=== PATIENT | female | born 1940 | race Caucasian/White ===

== ENCOUNTER 2016-06-17 09:41 | Emergency (ER) | payer MEDICARE ==
[~2016-06-17] VITALS: Ht 165.1 cm; Wt 81.8 kg
[2016-06-17 09:46] VITALS: Ht 165.1 cm; Wt 81.8 kg
[2016-06-17] MEDS ORDERED: IPRATROPIUM (NEB) 0.5 MG/2.5 ML AMP NEB STA (10:03)
[2016-06-17] MEDS ORDERED: ALBUTEROL 0.5% (NEB) 2.5 MG/0.5 ML AMP NEB STA (10:03)
[2016-06-17] MEDS ORDERED: METHYLPREDNISOLONE 125 MG INJ IV STA (10:03)
--- NOTE | 2016-06-17 10:23 | RADRPT ---
PROCEDURE: XR Chest. CLINICAL INDICATION: Abdomen pain. TECHNIQUE: Single frontal view. COMPARISON: None. FINDINGS: The lungs are clear. The heart size is normal. There is calcification in the aorta consistent with atherosclerosis. Thompson gical clips are present in the left axillary region. There is no pleural effusion. There is no pneumothorax. IMPRESSION: 1. Atherosclerosis. 2. Clear lungs. 3. Prior left axillary region surgery. RPTAT: QQ .Kevin Santiago MD, MD Date Time Electronically viewed and signed by .Kevin Santiago MD, MD on 06/17/2016 10:22 .R/
[2016-06-17 10:58] LABS: BASOPHILS % 0.4 % (0.0-2.0); EOSINOPHILS # 0.4 10^3/ul (0.0-0.5); EOSINOPHILS % 6.5 % (0.0-7.0); HEMATOCRIT 38.5 % (37.0-47.0); HEMOGLOBIN 12.6 g/dl (12.0-16.0); LYMPHOCYTES # 2.8 10^3/ul (0.8-2.9); LYMPHOCYTES % 45.4 % (15.0-51.0); MEAN CORPUSCULAR HEMOGLOBIN 27.9 pg (29.0-33.0); MEAN CORPUSCULAR HGB CONC 32.8 g/dl (32.0-37.0); MEAN CORPUSCULAR VOLUME 85.2 fl (82.0-101.0); MEAN PLATELET VOLUME 9.9 fl (7.4-10.4); MONOCYTE # 0.6 10^3/ul (0.3-0.9); MONOCYTES % 10.3 % (0.0-11.0); NEUTROPHIL # 2.3 10^3/ul (1.6-7.5); NEUTROPHILS % 37.4 % (39.0-77.0); PLATELET COUNT 154 10^3/UL (140-440); RED BLOOD COUNT 4.52 10^6/ul (4.20-5.40); RED CELL DISTRIBUTION WIDTH 20.2 % (11.5-14.5); UNCORRECTED WBC 6.2 10^3/ul (4.8-10.8); WHITE BLOOD COUNT 6.2 10^3/ul (4.8-10.8)
[2016-06-17 10:59] LABS: POTASSIUM 3.7 mmol/L (3.5-5.1)
[2016-06-17 11:01] LABS: ALBUMIN/GLOBULIN RATIO 0.93; BILIRUBIN,INDIRECT 0.2 mg/dl (0-1.1); BILIRUBIN,TOTAL 0.2 mg/dl (0.2-1.3); CREATININE 0.7 mg/dl (0.44-1.00); TOTAL PROTEIN 6.2 g/dl (6.1-8.1)
[2016-06-17 11:02] LABS: CALCIUM 8.3 mg/dl (8.4-10.2)
[2016-06-17 11:07] LABS: CONDITION 1; LH ANALYZER COMMENTS 1
[2016-06-17 12:06] VITALS: TEMP 97.7
--- NOTE | 2016-06-17 12:24 | RADRPT ---
PROCEDURE: CT brain without contrast CLINICAL INDICATION: Altered level of consciousness TECHNIQUE: CT of the brain without contrast performed on a multidetector CT scanner, with multiplan ar reformats. One or more of the following dose reduction techniques were used: Automated exposure control, adjustment in mA and / or kV according to patient size, use of iterative reconstructive mary hnique. CTDIvol = 45 mGy; DLP = 630 mGy-cm. COMPARISON: None available FINDINGS: No acute intracranial hemorrhage is identified. No extra-axial fluid collection is seen. There is no mass effect. No midline shift is identified. Ventricles and sulci are mild to moderately enlarged compatible with volume loss. There are mild to moderate areas of hypodensity in the periventricular - deep white matter which are nonspecific but suggestive of chronic small vessel ischemic changes. Knox-white differentiation is preserved. Osseous structures are unremarkable. Bilateral ethmoid air cell mucosal thickening and small left s phenoid sinus air fluid level are seen. IMPRESSION: 1. No evidence of acute intracranial pathology. 2. Mild to moderate volume loss, with mild to moderate chronic small vessel ischemic changes. RPTAT: VV .Rc Falcon MD, MD Date Time Electronically viewed and signed by .Rc Falcon MD, MD on 06/17/2016 12:24 .O/
[2016-06-17] MEDS ORDERED: LORAZEPAM 2 MG INJ IV ONE (13:00)
[2016-06-17 13:35] LABS: ADD UMIC YES; URINE BILIRUBIN (Dip) NEGATIVE (NEGATIVE); URINE BLOOD (Dip) 1+ (NEGATIVE); URINE COLOR LT. YELLOW (YELLOW); URINE GLUCOSE (Dip) NEGATIVE (NEGATIVE); URINE KETONES (Dip) NEGATIVE (NEGATIVE); URINE LEUKOCYTE ESTERASE (Dip) 2+ (NEGATIVE); URINE NITRITE (Dip) NEGATIVE (NEGATIVE); URINE TOTAL PROTEIN (Dip) TRACE (NEGATIVE); URINE UROBILINOGEN (Dip) 0.2 E.U./dL (0.1-1.0)
--- NOTE | 2016-06-17 13:49 | ERD ---
ER Documentation Chief Complaint Date/Time DATE: 06/17/16 TIME: 13:[address] and carotid duplex r/o CVA HPI This is a 76-year-old female who presents to the emergency room from her longterm for evaluation of a headache, and altered mental status. According to EMS in longterm notes this patient is normally alert oriented to person only. Today there was a concern for possible headache and they called the patient's primary care physician, Dr. mtz who sent this patient for evaluation and a CAT scan of the head. This patient is unable to give a history secondary to dementia. ROS All systems reviewed and are negative except as per history of present illness. Medications Home Meds Unable to Obtain Active Prescriptions or Reported Meds Allergies Allergies: Coded Allergies: Unknown: Unable to obtain (Unverified , 06/17/16) PMhx/Soc Hx Neurological Disorder: Yes (dementia ) Hx Alcohol Use: No Hx Substance Use: No Hx Tobacco Use: No Smoking Status: Unknown if ever smoked Physical Exam Vitals Vital Signs Date Time Temp Pulse Resp B/P Pulse Ox O2 Delivery O2 Flow Rate FiO2 06/17/16 12:06 97.7 06/17/16 10:23 72 20 93 21 06/17/16 09:46 97.8 72 20 106/53 93 Physical Exam Const: No acute distress Head: Atraumatic Eyes: Normal Conjunctiva ENT: Normal External Ears, Nose and Mouth. Neck: Full range of motion..~ No meningismus. Resp: Clear to auscultation bilaterally Cardio: Regular rate and rhythm, no murmurs Abd: Soft, non tender, non distended. Normal bowel sounds Skin: No petechiae or rashes Back: No midline or flank tenderness Ext: No cyanosis, or edema Neur: Awake and alert Psych: Normal Mood and Affect Result Diagram: 06/17/16 1030 06/17/16 1030 Results 24 hrs Laboratory Tests Test 06/17/16 10:30 06/17/16 11:59 06/17/16 13:15 Alanine Aminotransferase (ALT/SGPT) 32IU/L Albumin 3.0g/dl Albumin/Globulin Ratio 0.93 Alkaline Phosphatase 62IU/L Anion Gap 15 Aspartate Amino Transf (AST/SGOT) 36IU/L Basophils # 0.010^3/ul Basophils % 0.4% Blood Morphology Comment Blood Urea Nitrogen 13mg/dl Calcium Level 8.3mg/dl Carbon Dioxide Level 26mmol/L Chloride Level 104mmol/L Creatinine 0.70mg/dl Direct Bilirubin 0.00mg/dl Eosinophils # 0.410^3/ul Eosinophils % 6.5% Globulin 3.20g/dl Glucose Level 145mg/dl Hematocrit 38.5% Hemoglobin 12.6g/dl Indirect Bilirubin 0.2mg/dl Lipase 29U/L Lymphocytes # 2.810^3/ul Lymphocytes % 45.4% Mean Corpuscular Hemoglobin 27.9pg Mean Corpuscular Hemoglobin Concent 32.8g/dl Mean Corpuscular Volume 85.2fl Mean Platelet Volume 9.9fl Monocytes # 0.610^3/ul Monocytes % 10.3% Neutrophils # 2.310^3/ul Neutrophils % 37.4% Nucleated Red Blood Cells # 0.010^3/ul Nucleated Red Blood Cells % 0.0/100WBC Platelet Count 67710^3/UL Potassium Level 3.7mmol/L Red Blood Count 4.5210^6/ul Red Cell Distribution Width 20.2% Sodium Level 141mmol/L Total Bilirubin 0.2mg/dl Total Protein 6.2g/dl White Blood Count 6.210^3/ul Bedside Glucose 112mg/dL Urine Bilirubin NEGATIVE Urine Clarity CLEAR Urine Color LT. YELLOW Urine Glucose NEGATIVE% Urine Hemoglobin 1+ Urine Ketones NEGATIVE Urine Leukocyte Esterase 2+ Urine Microscopic RBC Pending Urine Microscopic WBC Pending Urine Nitrite NEGATIVE Urine Specific [place] 1.025 Urine Total Protein TRACE Urine Urobilinogen 0.2 E.U./dL Urine pH 6.0 Current Medications Medications (Trade) Dose Ordered Sig/Mari Route PRN Reason Start Time Stop Time Status Last Admin Dose Admin Albuterol (Proventil 0.5% (Neb)) 5 mg ONCE STAT NEB 06/17/16 10:03 06/17/16 10:05 DC 06/17/16 10:21 Ipratropium [place] (Atrovent 0.02% (Neb)) 0.5 mg ONCE STAT NEB 06/17/16 10:03 06/17/16 10:05 DC 06/17/16 10:21 Methylprednisolone Sodium Succinate (Solu-Medrol) 125 mg ONCE STAT IV 06/17/16 10:03 06/17/16 10:05 DC 06/17/16 10:38 Lorazepam (Ativan) 1 mg ONCE ONCE IV 06/17/16 13:00 06/17/16 13:01 DC 06/17/16 12:50 Procedures/MDM CT head without: 1. No evidence of acute intracranial pathology. 2. Mild to moderate volume loss, with mild to moderate chronic small vessel ischemic changes. Chest X-ray 1V Interpreted by me: Soft Tissue: No acute abnormalities Bones: No acute abnormalities Mediastinum/Cardiac Silhouette/Lungs: [No acute abnormalities] This is a 68-year-old female presents to emergency room for possible weakness and a headache. This patient had a CAT scan of the head which is normal. Lab work is within normal limits except for urinalysis. I did call the patient's primary care physician and states that if this patient's lab work is normal but can be returned to the longterm. The patient was given 1 g Rocephin here in the emergency room, urine culture was obtained. Patient will be discharged back to her longterm with a prescription for Macrobid for acute cystitis. There is no signs of systemic infection, no fever, no leukocytosis. This patient is hemodynamically stable at this time Departure Diagnosis: Primary Impression: Acute cystitis Additional Impression: Headache Condition: Stable RJ ANGULO DO Jun 17, 2016 13:49
[2016-06-17] MEDS ORDERED: NITR-58 PO (13:50)
[2016-06-17] MEDS ORDERED: CEFTRIAXONE 1 GM/50 ML (PMX) 50 ML IVPB ONE (14:00)
[2016-06-17 14:04] LABS: BACTERIA,URINE MODERATE; SQUAMOUS EPITHELIAL CELL,UR MODERATE
[2016-06-17 16:50] VITALS: BP 110/68; PULSE 81; RESP 16
== END 2016-06-17 17:07 | disposition home or self-care (01) ==
LOC: E/R 09:41
DX: N30.00 Acute cystitis without hematuria (principal); R40.2232 Coma scale, best verbal response, inappropriate words, at arrival to emergency department; R10.9 Unspecified abdominal pain; R40.2142 Coma scale, eyes open, spontaneous, at arrival to emergency department; R40.2352 Coma scale, best motor response, localizes pain, at arrival to emergency department
CPT/HCPCS: 36415; 70450; 71010; 80053; 81001; 81003; 82962; 83690; 85025; 87086; 87400; 94664; 96374; 96375; 99285; J0696; J2060; J2930